=== PATIENT | male | born 1955 | race Two or more races ===

== ENCOUNTER 2019-10-16 06:12 | Day surgery (SDC) | payer MEDICAID ==
[2019-10-14 09:10] LABS: Basophils # (auto) 0 10 ^3/uL (0-0.2); Basophils % (auto) 0.6 % (0.0-2.0); Eosinophils # (auto) 0.8 10 ^3/uL (0-0.8); Eosinophils % (auto) 11.5 % (0.0-7.0); Hematocrit 42.9 % (41.0-53.0); Hemoglobin 14.1 g/dL (13.5-17.5); Lymphocytes # (auto) 1.1 10 ^3/uL (0.4-5.4); Lymphocytes % (auto) 15.6 % (10.0-50.0); Mean Corpuscular Hemoglobin 30.1 pg (28.0-32.0); Mean Corpuscular Hgb Conc. 32.9 g/dL (32.0-36.0); Mean Corpuscular Volume 91.4 fL (80.0-100.0); Monocytes # (auto) 0.9 10 ^3/uL (0-1.3); Monocytes % (auto) 13.8 % (0.0-12.0); Neutrophils % (auto) 58.5 % (37.0-80.0); Nucleated Red Blood Cells % 0.1 %; Platelet Count (auto) 297 10^3/uL (140-450); Red Cell Distribution Width 14.4 % (11.8-14.3); White Blood Cell 6.8 10^3/uL (4.4-10.8)
[2019-10-14 09:16] LABS: Urine Amorphous Crystal MANY /hpf (None Seen); Urine Bacteria FEW /hpf (None Seen); Urine Blood Negative /uL (Negative); Urine Mucus FEW (None Seen); Urine Specific Gravity 1.024 (1.001-1.035); Urine WBC 16 /hpf (0 - 3); Urine WBC Clumps PRESENT /hpf (None Seen)
[2019-10-14 09:28] LABS: INR 0.98 (0.9-1.15); Partial Thromboplastin Time 26.5 sec (23.64-32.05)
[2019-10-14 09:32] LABS: Albumin 3.4 g/dL (3.4-5.0); BUN/Creatinine Ratio 15.1; Calcium 8.2 mg/dL (8.5-10.1)
[2019-10-14 09:35] LABS: Bilirubin, Total 0.6 mg/dL (0.2-1.0); Total Protein 7.3 g/dL (6.4-8.2)
[~2019-10-16] VITALS: Ht 175.3 cm; Wt 90.7 kg
[~2019-10-16 06:12] MED LIST: ALBU108A5 IN
[2019-10-16] MEDS ORDERED: ceFAZolin 1GM/50ML 50 ML IV ONE (06:48)
[2019-10-16] MEDS ORDERED: LIDOCAINE 1% HCL (LOCAL ANESTH.) INJ 20ML MDV ONE (07:03)
[2019-10-16] MEDS ORDERED: SUCCINYLCHOLINE CHLORIDE 20 MG/ML 10ML VIAL IV ONE (07:03)
[2019-10-16] MEDS ORDERED: MEPERIDINE HCL (25 MG/ML) 1ML VIAL ONE (07:12)
[2019-10-16] MEDS ORDERED: fentaNYL CITRATE 100 MCG/2 ML VL ONE (07:13)
[2019-10-16] MEDS ORDERED: MIDAZOLAM HCL 1MG/1ML-2 ML VIAL ONE (07:13)
[2019-10-16] MEDS ORDERED: PROPOFOL 10 MG/ML 20 ML IV ONE (07:14)
[2019-10-16] MEDS ORDERED: ONDANSETRON HCL 4 MG/2 ML VIAL ONE (07:14)
[2019-10-16] MEDS ORDERED: ROCURONIUM 10MG/ML 10ML VIAL IV ONE (07:23)
[2019-10-16] MEDS ORDERED: fentaNYL CITRATE 100 MCG/2 ML VL IV PRN (07:45)
[2019-10-16] MEDS ORDERED: MORPHINE SULFATE 4 MG/ML SYR/VIAL IV PRN (07:45)
[2019-10-16] MEDS ORDERED: METOCLOPRAMIDE HCL 5MG/ml INJ 2ml VIAL IV PRN (07:45)
[2019-10-16] MEDS ORDERED: HYDROmorphone HCL 2 MG/ML VL IV PRN (07:45)
[2019-10-16] MEDS ORDERED: BUPIVACAINE 0.25% INJ 50ML VIAL ONE (07:55)
[2019-10-16 09:50] VITALS: BP 118/79
== END 2019-10-16 10:28 | disposition home or self-care (01) ==
LOC: SUR 06:12
PROVIDERS: ATTEND Surgery
DX: J44.9 Chronic obstructive pulmonary disease, unspecified (principal); E66.9 Obesity, unspecified; Z98.890 Other specified postprocedural states; Z68.29 Body mass index [BMI] 29.0-29.9, adult; Z79.899 Other long term (current) drug therapy; Z11.59 Encounter for screening for other viral diseases
CPT/HCPCS: 36415; 49520; 80053; 81001; 85025; 85610; 85730; J0330; J0690; J2001; J2175; J2250; J2405; J2704; J3010; J3490; U0003

== ENCOUNTER 2020-12-30 07:23 | Day surgery (SDC) | payer MEDICARE, MEDICAID ==
[2020-12-28 08:59] LABS: Basophils # (auto) 0 10 ^3/uL (0-0.2); Basophils % (auto) 0.6 % (0.0-2.0); Eosinophils # (auto) 0.6 10 ^3/uL (0-0.8); Eosinophils % (auto) 8.4 % (0.0-7.0); Hematocrit 39.8 % (41.0-53.0); Hemoglobin 13.6 g/dL (13.5-17.5); Lymphocytes # (auto) 1.6 10 ^3/uL (0.4-5.4); Lymphocytes % (auto) 23.2 % (10.0-50.0); Mean Corpuscular Hemoglobin 30.5 pg (28.0-32.0); Mean Corpuscular Hgb Conc. 34.2 g/dL (32.0-36.0); Mean Corpuscular Volume 89.1 fL (80.0-100.0); Monocytes # (auto) 0.9 10 ^3/uL (0-1.3); Monocytes % (auto) 13.3 % (0.0-12.0); Neutrophils # (auto) 3.7 10 ^3/uL (1.6-8.6); Neutrophils % (auto) 54.5 % (37.0-80.0); Red Blood Cells 4.47 10^6/uL (4.5-5.90); Red Cell Distribution Width 13.8 % (11.8-14.3); White Blood Cell 6.7 10^3/uL (4.4-10.8)
[2020-12-28 09:05] LABS: Urine Bacteria NONE SEEN /hpf (None Seen); Urine Blood Negative /uL (Negative); Urine Budding Yeast OCCASIONAL /hpf (None Seen); Urine Specific Gravity 1.034 (1.001-1.035); Urine WBC 1 /hpf (0 - 3)
[2020-12-28 09:27] LABS: Albumin 3.3 g/dL (3.4-5.0); Calcium 8.4 mg/dL (8.5-10.1); Potassium 3.8 mmol/L (3.5-5.1)
[2020-12-28 09:31] LABS: BUN/Creatinine Ratio 20.4; Bilirubin, Total 0.8 mg/dL (0.2-1.0); Total Protein 7.3 g/dL (6.4-8.2)
[~2020-12-30] VITALS: Ht 172.7 cm; Wt 93.0 kg
[~2020-12-30 07:23] MED LIST changes: +TAMS0.4C36 PO
[2020-12-30] MEDS ORDERED: ceFAZolin 1GM/50ML 100 ML IV ONE (07:32)
[2020-12-30] MEDS ORDERED: fentaNYL CITRATE 100 MCG/2 ML VL ONE (07:36)
[2020-12-30] MEDS ORDERED: PROPOFOL 10 MG/ML 20 ML IV ONE (07:36)
[2020-12-30] MEDS ORDERED: MIDAZOLAM HCL 2MG/2ML 2ml VIAL (1mg/ml) ONE (07:36)
[2020-12-30] MEDS ORDERED: SODIUM CHLORIDE LOCK 10 ML ONE (07:36)
[2020-12-30] MEDS ORDERED: ONDANSETRON HCL 4 MG/2 ML VIAL ONE (07:36)
[2020-12-30] MEDS ORDERED: MEPERIDINE HCL (25 MG/ML) 1ML VIAL ONE (07:36)
[2020-12-30] MEDS ORDERED: hydrALAZINE HCL 20 MG/ML VL ONE (07:49)
[2020-12-30] MEDS ORDERED: BUPIVACAINE 0.25% INJ 50ML VIAL ONE (08:15)
[2020-12-30] MEDS ORDERED: LIDOCAINE W/ EPINEPHRINE 1% 20ML VIAL ONE (08:15)
[2020-12-30] MEDS ORDERED: METOCLOPRAMIDE HCL 5MG/ml INJ 2ml VIAL IV PRN (08:30)
[2020-12-30] MEDS ORDERED: HYDROmorphone HCL 2 MG/ML VL IV PRN (08:30)
[2020-12-30] MEDS ORDERED: MORPHINE SULFATE 4 MG/ML SYR/VIAL IV PRN (08:30)
[2020-12-30 10:30] VITALS: BP 116/70
== END 2020-12-30 10:45 | disposition home or self-care (01) ==
LOC: SUR 07:23
PROVIDERS: ATTEND Surgery
DX: K40.90 Unilateral inguinal hernia, without obstruction or gangrene, not specified as recurrent (principal); E66.01 Morbid (severe) obesity due to excess calories; J44.9 Chronic obstructive pulmonary disease, unspecified; G62.9 Polyneuropathy, unspecified; Z98.890 Other specified postprocedural states; Z79.899 Other long term (current) drug therapy; Z68.31 Body mass index [BMI] 31.0-31.9, adult
CPT/HCPCS: 36415; 49520; 80053; 81001; 85025; 86850; 86900; 86901; J0360; J0690; J2175; J2250; J2405; J2704; J3010; J3490; U0003

== ENCOUNTER 2021-01-05 08:11 | Inpatient (IN) | payer MEDICARE, MEDICAID ==
[~2021-01-05] VITALS: Ht 172.7 cm; Wt 104.5 kg
[2021-01-05 09:47] LABS: Basophils # (auto) 0 10 ^3/uL (0-0.2); Basophils % (auto) 0.3 % (0.0-2.0); Eosinophils # (auto) 0.2 10 ^3/uL (0-0.8); Hematocrit 44.1 % (41.0-53.0); Hemoglobin 15.3 g/dL (13.5-17.5); Lymphocytes # (auto) 1.3 10 ^3/uL (0.4-5.4); Lymphocytes % (auto) 13.4 % (10.0-50.0); Mean Corpuscular Hemoglobin 30.3 pg (28.0-32.0); Mean Corpuscular Hgb Conc. 34.6 g/dL (32.0-36.0); Mean Corpuscular Volume 87.5 fL (80.0-100.0); Monocytes # (auto) 1.6 10 ^3/uL (0-1.3); Monocytes % (auto) 16.7 % (0.0-12.0); Neutrophils # (auto) 6.4 10 ^3/uL (1.6-8.6); Neutrophils % (auto) 67.6 % (37.0-80.0); Red Blood Cells 5.04 10^6/uL (4.5-5.90); Red Cell Distribution Width 13.9 % (11.8-14.3); White Blood Cell 9.5 10^3/uL (4.4-10.8)
[2021-01-05 10:10] LABS: Albumin 3.3 g/dL (3.4-5.0); Anion Gap 8 (5-15); Blood Urea Nitrogen 41 mg/dL (7-18); Calcium 8.7 mg/dL (8.5-10.1); Carbon Dioxide 27 mmol/L (21-32); Chloride 95 mmol/L (98-107); Glucose 109 mg/dL (74-106); Potassium 3.3 mmol/L (3.5-5.1); Sodium 130 mmol/L (136-145)
[2021-01-05 10:17] LABS: Alanine Aminotransferase 20 U/L (16-61); Alkaline Phosphatase 68 U/L (45-117); Aspartate Aminotransferase 19 U/L (15-37); BUN/Creatinine Ratio 37.3; Bilirubin, Total 1.3 mg/dL (0.2-1.0); GFR African American 86 mL/min; GFR Non-African American 71 mL/min; Total Protein 8.1 g/dL (6.4-8.2)
[2021-01-05] MEDS ORDERED: metroNIDAZOLE 500MG/100ML 100 ML IV ONE (12:00)
[2021-01-05] MEDS ORDERED: MORPHINE SULFATE INJECTION 2 MG/ML SYRG IV PRN ×2 (12:00→14:45)
[2021-01-05] MEDS ORDERED: NITROGLYCERIN 0.4 MG SL TAB SL PRN ×2 (12:00→14:45)
[2021-01-05] MEDS ORDERED: LACTATED RINGER'S 1,000 ML IV ONE (12:00)
[2021-01-05] MEDS ORDERED: cefTRIAXone 1GM/50ML D5W 50 ML IV ONE (12:00)
[2021-01-05] MEDS ORDERED: POTASSIUM CHL 20MEQ/100ML 100 ML IV ONE (14:30)
[2021-01-05] MEDS ORDERED: ceFAZolin 1GM/50ML 50 ML IV ONE (14:30)
[2021-01-05] MEDS ORDERED: ACETAMINOPHEN 325 MG TAB PO PRN (14:45)
[2021-01-05] MEDS ORDERED: HYDROcodone-ACET 5/325MG TAB PO PRN (14:45)
[2021-01-05] MEDS ORDERED: LORazepam 0.5 MG TAB PO PRN (14:45)
[2021-01-05] MEDS ORDERED: DOCUSATE SOD 100 MG CAP PO PRN (14:45)
[2021-01-05] MEDS ORDERED: ALUM & MAG HYDROX-SIMETH LIQ(MAALOX) 30 ML PO PRN (14:45)
[2021-01-05 15:47] LABS: INR 1.05 (0.9-1.15)
[2021-01-05 15:48] LABS: Magnesium 2.8 mg/dL (1.6-2.6)
[2021-01-05 16:07] LABS: Cholesterol 145 mg/dL (< 200); HDL Cholesterol 45 mg/dL (40-59); LDL Cholesterol 84 mg/dL (< 100); Triglycerides 85 mg/dL (< 150)
[2021-01-05 16:08] LABS: Phosphorus 3.6 mg/dL (2.5-4.90)
[2021-01-05] MEDS ORDERED: IPRATROPIUM BROM 0.5 MG/2.5ML INH SOL NEB PRN (17:30)
[2021-01-05] MEDS ORDERED: IPRATROPIUM BROM 0.5 MG/2.5ML INH SOL NEB SCH (18:00)
[2021-01-05] MEDS ORDERED: TAMSULOSIN HYDROCHLORIDE 0.4 MG CAP PO SCH (18:00)
[2021-01-05] MEDS ORDERED: ATORVASTATIN 20 MG TAB PO SCH (22:00)
[2021-01-06] MEDS: D5W/ SOD CHL 0.9%/KCL 20MEQ 1,000 ML IV SCH ×2 (03:50→07:21)
[2021-01-06] MEDS: metroNIDAZOLE 500MG/100ML 100 ML IV SCH ×4 (04:00→20:30)
[2021-01-06] MEDS: ceFAZolin 1GM/50ML 50 ML IV SCH ×4 (06:00→21:46)
[2021-01-06] MEDS: MORPHINE SULFATE INJECTION 2 MG/ML SYRG IV PRN ×4 (06:06→23:51)
[2021-01-06] MEDS: ONDANSETRON HCL 4 MG/2 ML VIAL IV PRN ×3 (06:07→15:48)
[2021-01-06] MEDS ORDERED: cefTRIAXone 1GM/50ML D5W 50 ML IV SCH (09:00)
[2021-01-06] MEDS ORDERED: GASTROGRAFIN 120 ML SOL ONE (09:44)
[2021-01-06] MEDS ORDERED: ASPirin 81 mg TAB PO SCH (10:00)
[2021-01-06] MEDS ORDERED: POTASSIUM CHL 20 Meq TABLET PO SCH (10:00)
[2021-01-06] MEDS ORDERED: SODIUM CHLORIDE 0.9% 500 ML IV ONE (13:00)
[2021-01-06 17:13] VITALS: BP 117/73
[2021-01-06] MEDS: D5W/SOD CHL 0.45%/KCL 40MEQ 1,000 ML IV SCH ×2 (18:22→21:20)
[2021-01-06] MEDS ORDERED: HYDROmorphone HCL 2 MG/ML VL IV ONE (18:45)
[2021-01-06 22:29] VITALS: BP 120/79
[2021-01-07 05:00] VITALS: BP_SYST 105; BP_SYST 109; BP_DIAS 70; BP_DIAS 71
[2021-01-07 05:41] LABS: Amphetamine Screen, Urine NEGATIVE (NEGATIVE); Barbiturate Scree,Urine NEGATIVE (NEGATIVE); Benzodiazephine Screen, Urine NEGATIVE (NEGATIVE); Cannabinoid Screen, Urine NEGATIVE (NEGATIVE); Cocaine Screen, Urine NEGATIVE (NEGATIVE); Phencyclidine Screen, Urine NEGATIVE (NEGATIVE)
[2021-01-07 05:50] LABS: Opiate Scree,Urine POSITIVE (NEGATIVE)
[2021-01-07 06:08] LABS: Urine Bacteria NONE SEEN /hpf (None Seen); Urine Blood 1+ /uL (Negative); Urine Mucus FEW (None Seen); Urine Specific Gravity 1.038 (1.001-1.035); Urine WBC 1 /hpf (0 - 3)
[2021-01-07] MEDS: metroNIDAZOLE 500MG/100ML 100 ML IV SCH ×3 (06:39→19:53)
[2021-01-07 07:16] LABS: Potassium 3.9 mmol/L (3.5-5.1)
[2021-01-07 07:22] LABS: Albumin 2.7 g/dL (3.4-5.0); BUN/Creatinine Ratio 26.7; Bilirubin, Total 0.8 mg/dL (0.2-1.0); Calcium 8.4 mg/dL (8.5-10.1); Total Protein 7.1 g/dL (6.4-8.2)
[2021-01-07] MEDS: ceFAZolin 1GM/50ML 50 ML IV SCH ×3 (07:27→21:39)
[2021-01-07] MEDS: D5W/SOD CHL 0.45%/KCL 40MEQ 1,000 ML IV SCH ×2 (08:26→08:40)
[2021-01-07] MEDS: MORPHINE SULFATE INJECTION 2 MG/ML SYRG IV PRN ×4 (08:29→22:50)
[2021-01-07] MEDS: ONDANSETRON HCL 4 MG/2 ML VIAL IV PRN (08:29)
[2021-01-07] MEDS ORDERED: LIDOCAINE W/ EPINEPHRINE 1% 20ML VIAL ONE (08:47)
[2021-01-07] MEDS ORDERED: BUPIVACAINE 0.25% INJ 50ML VIAL ONE (08:48)
[2021-01-07] MEDS ORDERED: metroNIDAZOLE 500MG/100ML 100 ML IV ONE (08:59)
[2021-01-07] MEDS ORDERED: ceFAZolin 1GM/50ML 50 ML IV ONE (08:59)
[2021-01-07 09:00] VITALS: BP 114/58
[2021-01-07] MEDS ORDERED: SUCCINYLCHOLINE CHLORIDE 20 MG/ML 10ML VIAL IV ONE (09:13)
[2021-01-07] MEDS ORDERED: ROCURONIUM 10MG/ML 10ML VIAL IV ONE (09:20)
[2021-01-07] MEDS ORDERED: fentaNYL CITRATE 5 ML ONE (09:20)
[2021-01-07] MEDS ORDERED: MIDAZOLAM HCL 2MG/2ML 2ml VIAL (1mg/ml) ONE (09:20)
[2021-01-07] MEDS ORDERED: HYDROmorphone HCL 2 MG/ML VL ONE ×2 (10:04→13:11)
[2021-01-07] MEDS ORDERED: POVIDONE IODINE 10 % TOPICAL OINT 30GM TOP ONE (12:04)
[2021-01-07] MEDS ORDERED: ceFAZolin 1GM VL ONE (12:19)
[2021-01-07] MEDS ORDERED: NALOXONE HCL 0.4 MG/ML VIAL ONE (12:45)
[2021-01-07] MEDS ORDERED: SUGAMMADEX 200mg/2ml Vial (100MG/ML) IV ONE (12:57)
[2021-01-07] MEDS ORDERED: ONDANSETRON HCL 4 MG/2 ML VIAL ONE (13:10)
[2021-01-07] MEDS: HYDROmorphone HCL 2 MG/ML VL IV PRN ×3 (13:20→13:40)
[2021-01-07] MEDS ORDERED: HYDROmorphone HCL 2 MG/ML VL IV PRN (14:00)
[2021-01-07] MEDS ORDERED: ONDANSETRON HCL 4 MG/2 ML VIAL IV PRN (14:00)
[2021-01-07] MEDS: D5W/SOD CHL 0.45%/KCL 20MEQ 1,000 ML IV SCH ×2 (16:34→21:20)
[2021-01-07 17:00] VITALS: BP_SYST 107; BP_SYST 113; BP_DIAS 69; BP_DIAS 71
[2021-01-07 21:48] VITALS: BP 124/67
[2021-01-08] MEDS: ONDANSETRON HCL 4 MG/2 ML VIAL IV PRN ×4 (01:24→22:24)
[2021-01-08] MEDS ORDERED: HYDROmorphone HCL 2 MG/ML VL IV ONE (02:15)
[2021-01-08] MEDS: D5W/SOD CHL 0.45%/KCL 20MEQ 1,000 ML IV SCH ×3 (02:23→22:20)
[2021-01-08] MEDS: metroNIDAZOLE 500MG/100ML 100 ML IV SCH ×3 (04:11→21:54)
[2021-01-08] MEDS: ceFAZolin 1GM/50ML 50 ML IV SCH ×3 (05:20→23:35)
[2021-01-08] MEDS: MORPHINE SULFATE INJECTION 2 MG/ML SYRG IV PRN ×3 (05:21→22:24)
[2021-01-08 05:27] LABS: Basophils # (auto) 0 10 ^3/uL (0-0.2); Basophils % (auto) 0.1 % (0.0-2.0); Eosinophils # (auto) 0.1 10 ^3/uL (0-0.8); Eosinophils % (auto) 0.5 % (0.0-7.0); Hematocrit 44.8 % (41.0-53.0); Lymphocytes # (auto) 0.8 10 ^3/uL (0.4-5.4); Lymphocytes % (auto) 6.9 % (10.0-50.0); Mean Corpuscular Hemoglobin 29.6 pg (28.0-32.0); Mean Corpuscular Hgb Conc. 33.4 g/dL (32.0-36.0); Mean Corpuscular Volume 88.9 fL (80.0-100.0); Monocytes # (auto) 1.5 10 ^3/uL (0-1.3); Monocytes % (auto) 12.4 % (0.0-12.0); Neutrophils # (auto) 9.7 10 ^3/uL (1.6-8.6); Neutrophils % (auto) 80.1 % (37.0-80.0); Red Blood Cells 5.05 10^6/uL (4.5-5.90); Red Cell Distribution Width 13.9 % (11.8-14.3); White Blood Cell 12.1 10^3/uL (4.4-10.8)
[2021-01-08 05:40] LABS: INR 1.13 (0.9-1.15); Partial Thromboplastin Time 26.6 sec (23.6-33.0)
[2021-01-08 05:54] LABS: Potassium 4.4 mmol/L (3.5-5.1)
[2021-01-08 06:00] VITALS: BP 107/73
[2021-01-08 06:04] LABS: Albumin 2.3 g/dL (3.4-5.0); Bilirubin, Total 0.9 mg/dL (0.2-1.0); Calcium 8.2 mg/dL (8.5-10.1); Total Protein 6.4 g/dL (6.4-8.2)
[2021-01-08 09:00] VITALS: BP 111/78
[2021-01-08] MEDS: PANTOPRAZOLE 40 MG/10 ML VIAL INJ IV SCH (10:24)
[2021-01-08 17:00] VITALS: BP 118/80
[2021-01-08] MEDS: ENOXAPARIN SOD 40 MG/0.4 ML SYRINGE SC SCH (21:59)
[2021-01-08 22:00] VITALS: BP 120/71
[2021-01-09] MEDS: metroNIDAZOLE 500MG/100ML 100 ML IV SCH ×3 (04:13→20:48)
[2021-01-09 05:00] VITALS: BP 115/71
[2021-01-09] MEDS: ceFAZolin 1GM/50ML 50 ML IV SCH ×3 (05:45→22:33)
[2021-01-09] MEDS: D5W/SOD CHL 0.45%/KCL 20MEQ 1,000 ML IV SCH ×2 (06:40→14:45)
[2021-01-09] MEDS ORDERED: LIDOCAINE 1% (LOCAL ANESTH.) PF 5ml SDV ID ONE (08:45)
[2021-01-09 09:00] VITALS: BP 99/69
[2021-01-09] MEDS: SODIUM CHLOR 0.9% PF (SALINE LOCK) 10ML VIAL/SYR IV SCH ×2 (10:28→22:28)
[2021-01-09] MEDS: ENOXAPARIN SOD 40 MG/0.4 ML SYRINGE SC SCH (10:28)
[2021-01-09] MEDS: PANTOPRAZOLE 40 MG/10 ML VIAL INJ IV SCH (10:28)
[2021-01-09] MEDS ORDERED: TPN PER PHARMACY 0 ML IV SCH (11:45)
[2021-01-09 13:00] VITALS: BP 112/90
[2021-01-09 14:14] LABS: Albumin 2.1 g/dL (3.4-5.0); Calcium 8.3 mg/dL (8.5-10.1); Potassium 3.7 mmol/L (3.5-5.1)
[2021-01-09 14:19] LABS: BUN/Creatinine Ratio 18.8; Bilirubin, Total 0.6 mg/dL (0.2-1.0); Phosphorus 1.8 mg/dL (2.5-4.90); Pre Albumin 10.8 mg/dL (20.0-40.0)
[2021-01-09] MEDS ORDERED: DEXTROSE (50%) 50ML SYRG IV SCH (14:45)
[2021-01-09] MEDS ORDERED: SODIUM PHOSPH 24MEQ(18MMOL) IN NS 100 ML IV ONE (15:30)
[2021-01-09] MEDS: MORPHINE SULFATE INJECTION 2 MG/ML SYRG IV PRN ×2 (16:44→22:45)
[2021-01-09 17:00] VITALS: BP 106/74
[2021-01-09] MEDS: ACCU-CHEK COMFORT CURVE STRIP VI SCH ×2 (17:27→23:42)
[2021-01-09] MEDS: InsuLIN REG 1unit/0.01ml Soln (100units/ml) SC SCH ×2 (17:27→23:42)
[2021-01-09] MEDS ORDERED: AMINO ACID INFUSION IN D5W 2,000 ML IV NR (20:00)
[2021-01-09] MEDS ORDERED: AMINO ACID INFUSION IV NR ×2 (20:00)
[2021-01-09] MEDS ORDERED: AMINO ACID INFUSION IN D10W 1,000 ML IV NR (20:00)
[2021-01-09] MEDS ORDERED: D10W IV NR ×2 (20:00)
[2021-01-09] MEDS ORDERED: POTASSIUM PHOSPHATE IV NR ×2 (20:00)
[2021-01-09 22:00] VITALS: BP 120/57
[2021-01-09] MEDS: ONDANSETRON HCL 4 MG/2 ML VIAL IV PRN (22:45)
[2021-01-10] MEDS: metroNIDAZOLE 500MG/100ML 100 ML IV SCH ×3 (03:56→20:23)
[2021-01-10 05:00] VITALS: BP 104/63
[2021-01-10] MEDS: ceFAZolin 1GM/50ML 50 ML IV SCH ×3 (05:08→22:54)
[2021-01-10] MEDS: InsuLIN REG 1unit/0.01ml Soln (100units/ml) SC SCH ×3 (05:09→16:29)
[2021-01-10] MEDS: ACCU-CHEK COMFORT CURVE STRIP VI SCH ×3 (05:09→16:29)
[2021-01-10] MEDS: D5W/SOD CHL 0.45%/KCL 20MEQ 1,000 ML IV SCH ×2 (05:17→08:30)
[2021-01-10 06:22] LABS: Basophils # (auto) 0 10 ^3/uL (0-0.2); Basophils % (auto) 0.2 % (0.0-2.0); Eosinophils # (auto) 0.6 10 ^3/uL (0-0.8); Eosinophils % (auto) 6.1 % (0.0-7.0); Hematocrit 36.6 % (41.0-53.0); Hemoglobin 12.4 g/dL (13.5-17.5); Mean Corpuscular Hemoglobin 30.2 pg (28.0-32.0); Mean Corpuscular Hgb Conc. 33.8 g/dL (32.0-36.0); Mean Corpuscular Volume 89.2 fL (80.0-100.0); Monocytes # (auto) 1.5 10 ^3/uL (0-1.3); Monocytes % (auto) 16.1 % (0.0-12.0); Neutrophils # (auto) 6.1 10 ^3/uL (1.6-8.6); Neutrophils % (auto) 66.6 % (37.0-80.0); Red Cell Distribution Width 13.7 % (11.8-14.3); White Blood Cell 9.2 10^3/uL (4.4-10.8)
[2021-01-10 06:37] LABS: Albumin 1.9 g/dL (3.4-5.0); Calcium 7.9 mg/dL (8.5-10.1); Magnesium 2.8 mg/dL (1.6-2.6); Potassium 4.1 mmol/L (3.5-5.1)
[2021-01-10 06:40] LABS: BUN/Creatinine Ratio 21.2; Bilirubin, Total 0.4 mg/dL (0.2-1.0); Phosphorus 2.3 mg/dL (2.5-4.90); Total Protein 5.6 g/dL (6.4-8.2)
[2021-01-10 09:00] VITALS: BP 115/58
[2021-01-10] MEDS: MORPHINE SULFATE INJECTION 2 MG/ML SYRG IV PRN ×3 (09:33→18:47)
[2021-01-10] MEDS: PANTOPRAZOLE 40 MG/10 ML VIAL INJ IV SCH (09:48)
[2021-01-10] MEDS: ENOXAPARIN SOD 40 MG/0.4 ML SYRINGE SC SCH (09:49)
[2021-01-10] MEDS: SODIUM CHLOR 0.9% PF (SALINE LOCK) 10ML VIAL/SYR IV SCH ×2 (09:57→22:00)
[2021-01-10] MEDS ORDERED: SODIUM PHOSPHATES 40 MEQ in D5W 5% 250 ML IV ONE (10:30)
[2021-01-10 13:00] VITALS: BP 119/72
[2021-01-10] MEDS ORDERED: FLEET MINERAL OIL ENEMA 133 ML PR ONE (14:30)
[2021-01-10] MEDS: METOCLOPRAMIDE HCL 5MG/ml INJ 2ml VIAL IV SCH (16:28)
[2021-01-10] MEDS: TAMSULOSIN HYDROCHLORIDE 0.4 MG CAP PO SCH (16:29)
[2021-01-10 17:20] VITALS: BP 99/65
[2021-01-10] MEDS: NEOSTIGMINE 1 MG/ML INJ (10mg/10ML VIAL) SC SCH ×2 (17:35→22:54)
[2021-01-10] MEDS ORDERED: TPN PER PHARMACY IV NR ×7 (20:00)
[2021-01-10 22:13] VITALS: BP 99/58
[2021-01-10] MEDS: MINERAL OIL 30 ML GT SCH (22:53)
[2021-01-11] MEDS: ACCU-CHEK COMFORT CURVE STRIP VI SCH ×4 (00:17→16:41)
[2021-01-11] MEDS: D5W/SOD CHL 0.45%/KCL 20MEQ 1,000 ML IV SCH ×3 (00:17→22:00)
[2021-01-11] MEDS: METOCLOPRAMIDE HCL 5MG/ml INJ 2ml VIAL IV SCH ×4 (00:17→16:47)
[2021-01-11] MEDS: NEOSTIGMINE 1 MG/ML INJ (10mg/10ML VIAL) SC SCH ×6 (02:24→23:40)
[2021-01-11] MEDS: MORPHINE SULFATE INJECTION 2 MG/ML SYRG IV PRN ×5 (03:53→21:11)
[2021-01-11] MEDS: metroNIDAZOLE 500MG/100ML 100 ML IV SCH ×3 (03:53→21:11)
[2021-01-11 05:25] VITALS: BP 111/65
[2021-01-11] MEDS: ceFAZolin 1GM/50ML 50 ML IV SCH ×3 (05:57→23:39)
[2021-01-11] MEDS: InsuLIN REG 1unit/0.01ml Soln (100units/ml) SC SCH ×4 (06:46→16:41)
[2021-01-11] MEDS: SODIUM CHLOR 0.9% PF (SALINE LOCK) 10ML VIAL/SYR IV SCH ×2 (07:47→23:39)
[2021-01-11] MEDS: PANTOPRAZOLE 40 MG/10 ML VIAL INJ IV SCH (07:47)
[2021-01-11] MEDS: MINERAL OIL 30 ML GT SCH ×2 (07:47→23:40)
[2021-01-11] MEDS: ENOXAPARIN SOD 40 MG/0.4 ML SYRINGE SC SCH (07:47)
[2021-01-11 08:06] LABS: Basophils # (auto) 0 10 ^3/uL (0-0.2); Basophils % (auto) 0.3 % (0.0-2.0); Eosinophils # (auto) 0.5 10 ^3/uL (0-0.8); Eosinophils % (auto) 6.2 % (0.0-7.0); Hematocrit 38.5 % (41.0-53.0); Hemoglobin 13.1 g/dL (13.5-17.5); Lymphocytes # (auto) 1.2 10 ^3/uL (0.4-5.4); Lymphocytes % (auto) 13.4 % (10.0-50.0); Mean Corpuscular Hemoglobin 30.2 pg (28.0-32.0); Mean Corpuscular Volume 88.9 fL (80.0-100.0); Monocytes # (auto) 1.2 10 ^3/uL (0-1.3); Monocytes % (auto) 14.3 % (0.0-12.0); Neutrophils # (auto) 5.7 10 ^3/uL (1.6-8.6); Neutrophils % (auto) 65.8 % (37.0-80.0); Red Blood Cells 4.34 10^6/uL (4.5-5.90); Red Cell Distribution Width 14.1 % (11.8-14.3); White Blood Cell 8.6 10^3/uL (4.4-10.8)
[2021-01-11 08:25] LABS: Calcium 7.7 mg/dL (8.5-10.1)
[2021-01-11 08:31] LABS: Albumin 1.9 g/dL (3.4-5.0); BUN/Creatinine Ratio 18.8; Bilirubin, Total 0.4 mg/dL (0.2-1.0); Magnesium 2.5 mg/dL (1.6-2.6); Phosphorus 2.5 mg/dL (2.5-4.90); Total Protein 5.5 g/dL (6.4-8.2)
[2021-01-11 09:00] VITALS: BP 105/68
[2021-01-11 13:00] VITALS: BP 111/68
[2021-01-11] MEDS ORDERED: GASTROGRAFIN 120 ML SOL ONE (14:01)
[2021-01-11] MEDS: ONDANSETRON HCL 4 MG/2 ML VIAL IV PRN (16:17)
[2021-01-11] MEDS: TAMSULOSIN HYDROCHLORIDE 0.4 MG CAP PO SCH (16:47)
[2021-01-11 17:07] VITALS: BP 118/72
[2021-01-11] MEDS ORDERED: TPN PER PHARMACY IV NR ×10 (20:00)
[2021-01-11 22:00] VITALS: BP 108/65
[2021-01-12] MEDS: METOCLOPRAMIDE HCL 5MG/ml INJ 2ml VIAL IV SCH ×5 (01:47→22:23)
[2021-01-12] MEDS: metroNIDAZOLE 500MG/100ML 100 ML IV SCH ×2 (04:30→09:49)
[2021-01-12] MEDS: NEOSTIGMINE 1 MG/ML INJ (10mg/10ML VIAL) SC SCH ×4 (04:30→11:55)
[2021-01-12] MEDS: ceFAZolin 1GM/50ML 50 ML IV SCH ×2 (04:30→11:55)
[2021-01-12 05:00] VITALS: BP 96/70
[2021-01-12 05:49] LABS: Calcium 7.9 mg/dL (8.5-10.1); Magnesium 2.5 mg/dL (1.6-2.6); Potassium 3.7 mmol/L (3.5-5.1)
[2021-01-12 05:52] LABS: BUN/Creatinine Ratio 15.3; Bilirubin, Total 0.6 mg/dL (0.2-1.0); Phosphorus 2.8 mg/dL (2.5-4.90); Total Protein 5.8 g/dL (6.4-8.2)
[2021-01-12] MEDS: InsuLIN REG 1unit/0.01ml Soln (100units/ml) SC SCH ×3 (06:00→09:55)
[2021-01-12] MEDS: ACCU-CHEK COMFORT CURVE STRIP VI SCH ×3 (06:13→09:55)
[2021-01-12] MEDS: D5W/SOD CHL 0.45%/KCL 20MEQ 1,000 ML IV SCH (09:49)
[2021-01-12] MEDS: PANTOPRAZOLE 40 MG/10 ML VIAL INJ IV SCH (09:49)
[2021-01-12] MEDS: ENOXAPARIN SOD 40 MG/0.4 ML SYRINGE SC SCH (09:49)
[2021-01-12] MEDS: SODIUM CHLOR 0.9% PF (SALINE LOCK) 10ML VIAL/SYR IV SCH ×2 (09:49→20:34)
[2021-01-12] MEDS: MINERAL OIL 30 ML GT SCH (09:49)
[2021-01-12 13:40] VITALS: BP 115/74
[2021-01-12] MEDS: TAMSULOSIN HYDROCHLORIDE 0.4 MG CAP PO SCH (15:44)
[2021-01-12 17:48] VITALS: BP 115/76
[2021-01-12] MEDS: HYDROcodone-ACET 5/325MG TAB PO PRN (19:41)
[2021-01-12] MEDS ORDERED: TPN PER PHARMACY IV NR ×11 (20:00)
[2021-01-12] MEDS: MINERAL OIL 30 ML PO SCH (20:34)
[2021-01-12 22:00] VITALS: BP 115/64
[2021-01-12] MEDS ORDERED: MORPHINE SULFATE INJECTION 2 MG/ML SYRG IV ONE (23:00)
[2021-01-13 05:00] VITALS: BP 104/63
[2021-01-13] MEDS: METOCLOPRAMIDE HCL 5MG/ml INJ 2ml VIAL IV SCH ×3 (05:36→17:09)
[2021-01-13] MEDS: HYDROcodone-ACET 5/325MG TAB PO PRN ×3 (05:43→19:55)
[2021-01-13] MEDS: PANTOPRAZOLE 40 MG/10 ML VIAL INJ IV SCH (08:16)
[2021-01-13] MEDS: SODIUM CHLOR 0.9% PF (SALINE LOCK) 10ML VIAL/SYR IV SCH ×2 (08:17→20:51)
[2021-01-13] MEDS: MINERAL OIL 30 ML PO SCH ×2 (08:17→20:51)
[2021-01-13] MEDS: ENOXAPARIN SOD 40 MG/0.4 ML SYRINGE SC SCH (08:17)
[2021-01-13 09:00] VITALS: BP 105/62
[2021-01-13 13:10] VITALS: BP 99/62
[2021-01-13 16:53] VITALS: BP 108/61
[2021-01-13] MEDS: TAMSULOSIN HYDROCHLORIDE 0.4 MG CAP PO SCH (17:09)
[2021-01-13 22:00] VITALS: BP 123/63
[2021-01-14] MEDS: HYDROcodone-ACET 5/325MG TAB PO PRN ×2 (00:04→05:44)
[2021-01-14 05:00] VITALS: BP 103/57
[2021-01-14] MEDS: METOCLOPRAMIDE HCL 5MG/ml INJ 2ml VIAL IV SCH ×3 (05:41→11:51)
[2021-01-14] MEDS ORDERED: PANT40TA2 PO (08:37)
[2021-01-14 09:00] VITALS: BP 95/54
[2021-01-14] MEDS: SODIUM CHLOR 0.9% PF (SALINE LOCK) 10ML VIAL/SYR IV SCH (09:02)
[2021-01-14] MEDS: MINERAL OIL 30 ML PO SCH (09:02)
[2021-01-14] MEDS: ENOXAPARIN SOD 40 MG/0.4 ML SYRINGE SC SCH (09:02)
[2021-01-14] MEDS: PANTOPRAZOLE 40 MG/10 ML VIAL INJ IV SCH (09:02)
[2021-01-14] MEDS ORDERED: POLY33504 PO (12:18)
[2021-01-14] MEDS ORDERED: METR500T PO (12:18)
[2021-01-14] MEDS ORDERED: BISA1TAB6 PO (12:18)
[2021-01-14] MEDS ORDERED: LEVO-28 PO (12:18)
== END 2021-01-14 13:43 | disposition home or self-care (01) | DRG 336 ==
LOC: ER 08:11 → OVERFLOW 11:48 → TELE-WESTW 01-06 15:37 → WEST WING 01-07 00:26 → TELE-WESTW 01-07 16:56 → WEST WING 01-12 11:42
PROVIDERS: ADMIT Hospitalist; ATTEND Internal Medicine
PROC: 0YQ60ZZ Repair Left Inguinal Region, Open Approach (ICD-10-PCS; 2021-01-07)
PROC: 0WUF0JZ Supplement Abdominal Wall with Synthetic Substitute, Open Approach (ICD-10-PCS; 2021-01-07)
PROC: 0D9680Z Drainage of Stomach with Drainage Device, Via Natural or Artificial Opening Endoscopic (ICD-10-PCS; 2021-01-07)
PROC: 0DN80ZZ Release Small Intestine, Open Approach (ICD-10-PCS; principal; 2021-01-07 09:21)
PROC: 02HV33Z Insertion of Infusion Device into Superior Vena Cava, Percutaneous Approach (ICD-10-PCS; 2021-01-09)
DX: K40.31 Unilateral inguinal hernia, with obstruction, without gangrene, recurrent (principal); E44.1 Mild protein-calorie malnutrition; E87.1 Hypo-osmolality and hyponatremia; K56.7 Ileus, unspecified; E66.01 Morbid (severe) obesity due to excess calories; E87.6 Hypokalemia; E78.5 Hyperlipidemia, unspecified; Z20.822 Contact with and (suspected) exposure to COVID-19; N40.0 Benign prostatic hyperplasia without lower urinary tract symptoms; K42.9 Umbilical hernia without obstruction or gangrene; Z68.32 Body mass index [BMI] 32.0-32.9, adult
CPT/HCPCS: 36415; 36569; 43235; 71045; 74018; 74176; 74250; 80053; 80061; 80307; 81001; 82040; 82962; 83036; 83735; 84100; 84443; 84478; 84484; 85025; 85610; 85730; 86850; 86900; 86901; 87040; 87081; 87086; 87426; 93005; 97163; C9113; G0378; J0330; J0690; J0696; J1815; J2250; J2405; J3480; J3490; J7060; J7131

== ENCOUNTER → 2021-03-11 | Day surgery (SDC) | payer MEDICARE, MEDICAID ==
[2021-03-08 09:25] LABS: Basophils # (auto) 0 10 ^3/uL (0-0.2); Basophils % (auto) 0.3 % (0.0-2.0); Eosinophils # (auto) 0.6 10 ^3/uL (0-0.8); Eosinophils % (auto) 10.1 % (0.0-7.0); Hematocrit 43.1 % (41.0-53.0); Hemoglobin 14.2 g/dL (13.5-17.5); Lymphocytes # (auto) 0.9 10 ^3/uL (0.4-5.4); Lymphocytes % (auto) 16.6 % (10.0-50.0); Mean Corpuscular Hemoglobin 29.5 pg (28.0-32.0); Mean Corpuscular Volume 89.3 fL (80.0-100.0); Monocytes # (auto) 0.6 10 ^3/uL (0-1.3); Monocytes % (auto) 10.9 % (0.0-12.0); Neutrophils # (auto) 3.5 10 ^3/uL (1.6-8.6); Neutrophils % (auto) 62.1 % (37.0-80.0); Nucleated Red Blood Cells % 0.1 %; Red Blood Cells 4.83 10^6/uL (4.5-5.90); Red Cell Distribution Width 14.4 % (11.8-14.3); White Blood Cell 5.6 10^3/uL (4.4-10.8)
[2021-03-08 09:29] LABS: Urine Bacteria NONE SEEN /hpf (None Seen); Urine Blood 1+ /uL (Negative); Urine Specific Gravity 1.018 (1.001-1.035); Urine WBC 1 /hpf (0 - 3)
[2021-03-08 09:53] LABS: Potassium 4.2 mmol/L (3.5-5.1)
[2021-03-08 09:58] LABS: Albumin 3.4 g/dL (3.4-5.0); BUN/Creatinine Ratio 11.7; Bilirubin, Total 0.4 mg/dL (0.2-1.0); Calcium 8.6 mg/dL (8.5-10.1); Total Protein 7.8 g/dL (6.4-8.2)
[~2021-03-11] VITALS: Ht 172.7 cm; Wt 95.3 kg
[~2021-03-11] MED LIST changes: +BISA1TAB6 PO; +CIPROFLOXACIN 400MG/200ML 200 ML IV ONE; +HYDROmorphone HCL 2 MG/ML VL IV PRN; +LEVO-28 PO; +METOCLOPRAMIDE HCL 5MG/ml INJ 2ml VIAL IV PRN; +METR500T PO; +MIDAZOLAM HCL 2MG/2ML 2ml VIAL (1mg/ml) ONE; +MORPHINE SULFATE 4 MG/ML SYR/VIAL IV PRN; +ONDANSETRON HCL 4 MG/2 ML VIAL ONE; +PANT40TA2 PO; +POLY33504 PO; +PROPOFOL 10 MG/ML 20 ML IV ONE; +SODIUM CHLORIDE LOCK 10 ML ONE; +ceFAZolin 1GM/50ML 0 ML IV ONE; +fentaNYL CITRATE 100 MCG/2 ML VL ONE
[2021-03-11 09:40] VITALS: BP 101/61
== END | disposition home or self-care (01) ==
LOC: SUR 07:38
PROVIDERS: ATTEND Urology
DX: N40.0 Benign prostatic hyperplasia without lower urinary tract symptoms (principal); J32.8 Other chronic sinusitis; J44.9 Chronic obstructive pulmonary disease, unspecified; Z79.899 Other long term (current) drug therapy; Z68.31 Body mass index [BMI] 31.0-31.9, adult; Z20.822 Contact with and (suspected) exposure to COVID-19
CPT/HCPCS: 36415; 55700; 80053; 81001; 85025; J0744; J2250; J2405; J2704; J3010; U0003; 76872; J0690

== ENCOUNTER → 2021-11-24 | Outpatient (CLI) | payer MEDICARE, MEDICAID ==
[~2021-11-24] MED LIST changes: -CIPROFLOXACIN 400MG/200ML 200 ML IV ONE; -HYDROmorphone HCL 2 MG/ML VL IV PRN; -METOCLOPRAMIDE HCL 5MG/ml INJ 2ml VIAL IV PRN; -MIDAZOLAM HCL 2MG/2ML 2ml VIAL (1mg/ml) ONE; -MORPHINE SULFATE 4 MG/ML SYR/VIAL IV PRN; -ONDANSETRON HCL 4 MG/2 ML VIAL ONE; -PROPOFOL 10 MG/ML 20 ML IV ONE; -SODIUM CHLORIDE LOCK 10 ML ONE; -ceFAZolin 1GM/50ML 0 ML IV ONE; -fentaNYL CITRATE 100 MCG/2 ML VL ONE
== END | disposition home or self-care (01) ==
LOC: LAB 08:25
DX: C61 Malignant neoplasm of prostate (principal)
CPT/HCPCS: 36415; 84153; 84403

== ENCOUNTER → 2022-01-10 | Outpatient (CLI) | payer MEDICARE, MEDICAID ==
[2022-01-10 10:36] LABS: Basophils # (auto) 0 10 ^3/uL (0-0.2); Basophils % (auto) 0.5 % (0.0-2.0); Eosinophils # (auto) 0.6 10 ^3/uL (0-0.8); Eosinophils % (auto) 12.5 % (0.0-7.0); Hematocrit 38.5 % (41.0-53.0); Hemoglobin 12.6 g/dL (13.5-17.5); Lymphocytes # (auto) 0.9 10 ^3/uL (0.4-5.4); Lymphocytes % (auto) 17.7 % (10.0-50.0); Mean Corpuscular Hemoglobin 29.6 pg (28.0-32.0); Mean Corpuscular Hgb Conc. 32.8 g/dL (32.0-36.0); Mean Corpuscular Volume 90.1 fL (80.0-100.0); Monocytes # (auto) 0.5 10 ^3/uL (0-1.3); Monocytes % (auto) 10.5 % (0.0-12.0); Neutrophils # (auto) 2.9 10 ^3/uL (1.6-8.6); Neutrophils % (auto) 58.8 % (37.0-80.0); Red Blood Cells 4.27 10^6/uL (4.5-5.90); Red Cell Distribution Width 13.8 % (11.8-14.3)
[2022-01-10 10:43] LABS: Calcium 8.8 mg/dL (8.5-10.1); Potassium 3.9 mmol/L (3.5-5.1)
[2022-01-10 10:49] LABS: Albumin 3.1 g/dL (3.4-5.0); BUN/Creatinine Ratio 10.3; Bilirubin, Total 0.4 mg/dL (0.2-1.0); Total Protein 7.2 g/dL (6.4-8.2); Uric Acid 5.6 mg/dL (3.5-7.2)
== END | disposition home or self-care (01) ==
LOC: LAB 10:02
PROVIDERS: ATTEND Nurse Practitioner
DX: I10 Essential (primary) hypertension (principal); E78.5 Hyperlipidemia, unspecified
CPT/HCPCS: 36415; 80053; 80061; 84550; 85025

== ENCOUNTER → 2022-02-24 | Outpatient (CLI) | payer MEDICARE, MEDICAID | END | disposition home or self-care (01) | LOC: LAB 09:41 | PROVIDERS: ATTEND Urology | DX: C61 Malignant neoplasm of prostate (principal) | CPT/HCPCS: 36415; 84153; 84403 ==

== ENCOUNTER 2022-09-28 08:35 | Inpatient (IN) | payer MEDICARE, MEDICAID ==
[2022-09-26 12:50] LABS: Urine WBC None Seen /hpf (0 - 3)
[2022-09-26 13:13] LABS: Basophils # (auto) 0 10 ^3/uL (0-0.2); Basophils % (auto) 0.5 % (0.0-2.0); Eosinophils # (auto) 0.6 10 ^3/uL (0-0.8); Eosinophils % (auto) 10.6 % (0.0-7.0); Hematocrit 38.7 % (41.0-53.0); Hemoglobin 12.8 g/dL (13.5-17.5); Lymphocytes # (auto) 1.3 10 ^3/uL (0.4-5.4); Lymphocytes % (auto) 20.9 % (10.0-50.0); Mean Corpuscular Hemoglobin 29.4 pg (28.0-32.0); Mean Corpuscular Hgb Conc. 33.1 g/dL (32.0-36.0); Mean Corpuscular Volume 88.7 fL (80.0-100.0); Monocytes # (auto) 0.7 10 ^3/uL (0-1.3); Monocytes % (auto) 11.8 % (0.0-12.0); Neutrophils # (auto) 3.5 10 ^3/uL (1.6-8.6); Neutrophils % (auto) 56.2 % (37.0-80.0); Nucleated Red Blood Cells % 0.1 %; Red Blood Cells 4.37 10^6/uL (4.5-5.90); White Blood Cell 6.1 10^3/uL (4.4-10.8)
[2022-09-26 13:27] LABS: INR 0.92 (0.9-1.15); Partial Thromboplastin Time 26.4 sec (24.6-33.4)
[2022-09-26 13:35] LABS: Albumin 3.6 g/dL (3.4-5.0); Potassium 4.2 mmol/L (3.5-5.1)
[2022-09-26 13:37] LABS: Urine Bacteria NONE SEEN /hpf (None Seen); Urine Blood TRACE /uL (Negative); Urine Specific Gravity 1.009 (1.001-1.035)
[2022-09-26 13:41] LABS: Bilirubin, Total 0.4 mg/dL (0.2-1.0); Total Protein 7.8 g/dL (6.4-8.2)
[~2022-09-28] VITALS: Ht 172.7 cm; Wt 109.3 kg
[~2022-09-28 08:35] MED LIST changes: -BISA1TAB6 PO; -LEVO-28 PO; -METR500T PO; -PANT40TA2 PO; -POLY33504 PO; -TAMS0.4C36 PO
[2022-09-28] MEDS ORDERED: ceFAZolin 1GM/50ML 100 ML IV ONE (08:36)
[2022-09-28] MEDS ORDERED: fentaNYL CITRATE 100 MCG/2 ML VL ONE (09:38)
[2022-09-28] MEDS ORDERED: ePHEDrine SULFATE 50 MG/ML AMP ONE (09:38)
[2022-09-28] MEDS ORDERED: MIDAZOLAM HCL 2MG/2ML 2ml VIAL (1mg/ml) ONE (09:38)
[2022-09-28] MEDS ORDERED: LIDOCAINE 2% (LOCAL ANESTH.) PF 5ml SDV ONE (09:38)
[2022-09-28] MEDS ORDERED: HYDROmorphone HCL 2 MG/ML VL/or syr ONE (09:38)
[2022-09-28] MEDS ORDERED: PROPOFOL 10 MG/ML 20 ML IV ONE (09:38)
[2022-09-28] MEDS ORDERED: KETOROLAC TROMETH 30 MG/ML 1ML VIAL ONE (09:38)
[2022-09-28] MEDS ORDERED: GLYCOPYRROLATE 0.2 MG/ML 1ML VIAL ONE (09:38)
[2022-09-28] MEDS ORDERED: ONDANSETRON HCL 4 MG/2 ML VIAL ONE (09:38)
[2022-09-28] MEDS ORDERED: DexAMETHasone SOD PHOS 10MG/1ML VIAL INJ ONE (09:38)
[2022-09-28] MEDS ORDERED: SUCCINYLCHOLINE CHLORIDE 20 MG/ML 10ML VIAL IV ONE (10:55)
[2022-09-28] MEDS ORDERED: ROCURONIUM 10MG/ML 10ML VIAL IV ONE (10:56)
[2022-09-28] MEDS ORDERED: LIDOCAINE W/ EPINEPHRINE 1% 20ML VIAL ONE (10:57)
[2022-09-28] MEDS ORDERED: BUPIVACAINE 0.25% INJ 50ML VIAL ONE (10:57)
[2022-09-28] MEDS ORDERED: SUGAMMADEX 200mg/2ml Vial (100MG/ML) IV ONE (12:14)
[2022-09-28] MEDS ORDERED: POVIDONE IODINE 10 % TOPICAL OINT 30GM TOP ONE (12:17)
[2022-09-28] MEDS: D5W/SOD CHL 0.45%/KCL 20MEQ 1,000 ML IV SCH ×2 (12:30→21:32)
[2022-09-28] MEDS ORDERED: HYDROmorphone HCL 2 MG/ML VL/or syr IV PRN ×2 (12:30→12:45)
[2022-09-28] MEDS ORDERED: ONDANSETRON HCL 4 MG/2 ML VIAL IV PRN ×2 (12:30→12:45)
[2022-09-28] MEDS: ceFAZolin 1GM/50ML 50 ML IV SCH ×2 (14:00→21:32)
[2022-09-28] MEDS: metroNIDAZOLE 500MG/100ML 100 ML IV SCH ×2 (14:25→21:32)
[2022-09-28 16:16] VITALS: BP 101/52
[2022-09-28 16:58] VITALS: BP 101/52
[2022-09-28] MEDS ORDERED: TAMS0.4C36 PO (17:13)
[2022-09-28 22:00] VITALS: BP 92/55
[2022-09-29 05:00] VITALS: BP 94/53
[2022-09-29] MEDS: ceFAZolin 1GM/50ML 50 ML IV SCH ×3 (05:20→21:51)
[2022-09-29] MEDS: metroNIDAZOLE 500MG/100ML 100 ML IV SCH ×3 (05:20→21:51)
[2022-09-29 05:32] LABS: BUN/Creatinine Ratio 18.7 (10.0-20.0); Calcium 8.5 mg/dL (8.5-10.1); Potassium 4.6 mmol/L (3.5-5.1)
[2022-09-29 05:48] LABS: Basophils # (auto) 0 10 ^3/uL (0-0.2); Eosinophils # (auto) 0 10 ^3/uL (0-0.8); Hematocrit 33.3 % (41.0-53.0); Lymphocytes # (auto) 0.5 10 ^3/uL (0.4-5.4); Lymphocytes % (auto) 4.7 % (10.0-50.0); Mean Corpuscular Hemoglobin 29.8 pg (28.0-32.0); Mean Corpuscular Hgb Conc. 33.2 g/dL (32.0-36.0); Mean Corpuscular Volume 89.7 fL (80.0-100.0); Monocytes # (auto) 0.8 10 ^3/uL (0-1.3); Monocytes % (auto) 6.7 % (0.0-12.0); Neutrophils # (auto) 10.2 10 ^3/uL (1.6-8.6); Neutrophils % (auto) 88.6 % (37.0-80.0); Red Blood Cells 3.71 10^6/uL (4.5-5.90); Red Cell Distribution Width 13.9 % (11.8-14.3); White Blood Cell 11.5 10^3/uL (4.4-10.8)
[2022-09-29] MEDS: D5W/SOD CHL 0.45%/KCL 20MEQ 1,000 ML IV SCH ×3 (06:45→20:06)
[2022-09-29 08:53] VITALS: BP 97/51
[2022-09-29] MEDS: ENOXAPARIN SOD 40 MG/0.4 ML SYRINGE SC SCH (09:37)
[2022-09-29] MEDS: PANTOPRAZOLE 40 MG/10 ML VIAL INJ IV SCH (09:37)
[2022-09-29 13:00] VITALS: BP 148/52
[2022-09-29 17:00] VITALS: BP 101/65
[2022-09-29 20:30] VITALS: BP 108/57
[2022-09-29 22:00] VITALS: BP 108/57
[2022-09-30 05:00] VITALS: BP 112/58
[2022-09-30] MEDS: ceFAZolin 1GM/50ML 50 ML IV SCH ×3 (05:10→22:11)
[2022-09-30] MEDS: metroNIDAZOLE 500MG/100ML 100 ML IV SCH ×3 (05:10→23:01)
[2022-09-30 05:12] LABS: Basophils # (auto) 0 10 ^3/uL (0-0.2); Basophils % (auto) 0.3 % (0.0-2.0); Eosinophils # (auto) 0.2 10 ^3/uL (0-0.8); Eosinophils % (auto) 2.7 % (0.0-7.0); Hematocrit 34.1 % (41.0-53.0); Hemoglobin 11.6 g/dL (13.5-17.5); Lymphocytes # (auto) 1.1 10 ^3/uL (0.4-5.4); Lymphocytes % (auto) 13.4 % (10.0-50.0); Mean Corpuscular Volume 88.2 fL (80.0-100.0); Monocytes # (auto) 0.8 10 ^3/uL (0-1.3); Monocytes % (auto) 9.6 % (0.0-12.0); Neutrophils # (auto) 5.8 10 ^3/uL (1.6-8.6); Nucleated Red Blood Cells % 0.1 %; Red Blood Cells 3.86 10^6/uL (4.5-5.90); Red Cell Distribution Width 14.2 % (11.8-14.3); White Blood Cell 7.9 10^3/uL (4.4-10.8)
[2022-09-30 05:40] LABS: BUN/Creatinine Ratio 16.9 (10.0-20.0); Calcium 8.9 mg/dL (8.5-10.1)
[2022-09-30] MEDS: D5W/SOD CHL 0.45%/KCL 20MEQ 1,000 ML IV SCH ×4 (06:45→22:17)
[2022-09-30 08:00] VITALS: BP 107/39
[2022-09-30] MEDS: PANTOPRAZOLE 40 MG/10 ML VIAL INJ IV SCH (09:35)
[2022-09-30] MEDS: ENOXAPARIN SOD 40 MG/0.4 ML SYRINGE SC SCH (09:35)
[2022-09-30 12:00] VITALS: BP 92/51
[2022-09-30 16:00] VITALS: BP 93/51
[2022-09-30 22:00] VITALS: BP 114/72
[2022-10-01 05:00] VITALS: BP 107/63
[2022-10-01] MEDS: ceFAZolin 1GM/50ML 50 ML IV SCH ×3 (05:18→21:35)
[2022-10-01] MEDS: metroNIDAZOLE 500MG/100ML 100 ML IV SCH ×3 (05:57→22:49)
[2022-10-01 06:45] LABS: Basophils # (auto) 0 10 ^3/uL (0-0.2); Basophils % (auto) 0.5 % (0.0-2.0); Eosinophils # (auto) 0.5 10 ^3/uL (0-0.8); Eosinophils % (auto) 7.8 % (0.0-7.0); Hematocrit 34.6 % (41.0-53.0); Hemoglobin 12.1 g/dL (13.5-17.5); Lymphocytes # (auto) 0.9 10 ^3/uL (0.4-5.4); Lymphocytes % (auto) 13.7 % (10.0-50.0); Mean Corpuscular Hemoglobin 30.5 pg (28.0-32.0); Mean Corpuscular Hgb Conc. 34.8 g/dL (32.0-36.0); Mean Corpuscular Volume 87.6 fL (80.0-100.0); Monocytes # (auto) 0.8 10 ^3/uL (0-1.3); Neutrophils # (auto) 4.5 10 ^3/uL (1.6-8.6); Nucleated Red Blood Cells % 0.1 %; Red Blood Cells 3.95 10^6/uL (4.5-5.90); Red Cell Distribution Width 13.9 % (11.8-14.3); White Blood Cell 6.7 10^3/uL (4.4-10.8)
[2022-10-01 07:44] LABS: Calcium 8.9 mg/dL (8.5-10.1); Potassium 3.9 mmol/L (3.5-5.1)
[2022-10-01 08:56] VITALS: BP 100/62
[2022-10-01] MEDS: PANTOPRAZOLE 40 MG/10 ML VIAL INJ IV SCH (09:21)
[2022-10-01] MEDS: ENOXAPARIN SOD 40 MG/0.4 ML SYRINGE SC SCH (09:22)
[2022-10-01 12:58] VITALS: BP 116/76
[2022-10-01] MEDS: D5W/SOD CHL 0.45%/KCL 20MEQ 1,000 ML IV SCH (13:32)
[2022-10-01 17:06] VITALS: BP 112/76
[2022-10-01 22:00] VITALS: BP 102/56
[2022-10-02] MEDS: D5W/SOD CHL 0.45%/KCL 20MEQ 1,000 ML IV SCH (02:45)
[2022-10-02 05:00] VITALS: BP 93/52
[2022-10-02] MEDS: ceFAZolin 1GM/50ML 50 ML IV SCH (05:20)
[2022-10-02] MEDS: metroNIDAZOLE 500MG/100ML 100 ML IV SCH (06:13)
[2022-10-02 08:00] VITALS: BP 105/64
[2022-10-02] MEDS: ENOXAPARIN SOD 40 MG/0.4 ML SYRINGE SC SCH (09:08)
[2022-10-02] MEDS: PANTOPRAZOLE 40 MG/10 ML VIAL INJ IV SCH (09:08)
[2022-10-02] MEDS ORDERED: HYDR-4902 PO (09:31)
[2022-10-02] MEDS ORDERED: LEVO500T31 PO (09:31)
[2022-10-02] MEDS ORDERED: METR500T PO (09:31)
[2022-10-02 10:10] VITALS: BP 105/64
== END 2022-10-02 11:30 | disposition home or self-care (01) | DRG 336 ==
LOC: SUR 08:35 → TELE 14:36 → TELE-EAST 15:54 → EAST 09-29 19:01
PROVIDERS: ADMIT Internal Medicine; ATTEND Internal Medicine
PROC: 0DNW0ZZ Release Peritoneum, Open Approach (ICD-10-PCS; 2022-09-28)
PROC: 0WQF0ZZ Repair Abdominal Wall, Open Approach (ICD-10-PCS; principal; 2022-09-28 11:14)
DX: K43.2 Incisional hernia without obstruction or gangrene (principal); R71.0 Precipitous drop in hematocrit; K66.0 Peritoneal adhesions (postprocedural) (postinfection); N40.0 Benign prostatic hyperplasia without lower urinary tract symptoms; K42.9 Umbilical hernia without obstruction or gangrene; E66.9 Obesity, unspecified; Z68.36 Body mass index [BMI] 36.0-36.9, adult
CPT/HCPCS: 36415; 80048; 80053; 81001; 85025; 85610; 85730; 86850; 86900; 86901; C1781; C9113; G0378; J0330; J0690; J1100; J1885; J2001; J2250; J2405; J2704; J3490

== ENCOUNTER → 2022-12-19 | Outpatient (CLI) | payer MEDICARE, MEDICAID ==
[~2022-12-19] MED LIST changes: -ALBU108A5 IN; +HYDR-4902 PO; +LEVO500T31 PO; +METR500T PO; +TAMS0.4C36 PO
== END | disposition home or self-care (01) ==
LOC: LAB 10:04
DX: C61 Malignant neoplasm of prostate (principal)
CPT/HCPCS: 36415; 84153; 84403

== ENCOUNTER → 2023-05-16 | Outpatient (CLI) | payer MEDICARE, MEDICAID ==
[2023-05-16 08:11] LABS: Urine WBC None Seen /hpf (0 - 3)
[2023-05-16 08:18] LABS: Basophils # (auto) 0.1 10 ^3/uL (0-0.2); Basophils % (auto) 0.9 % (0.0-2.0); Eosinophils # (auto) 0.7 10 ^3/uL (0-0.8); Eosinophils % (auto) 10.6 % (0.0-7.0); Hematocrit 40.8 % (41.0-53.0); Hemoglobin 13.4 g/dL (13.5-17.5); Lymphocytes # (auto) 1.1 10 ^3/uL (0.4-5.4); Lymphocytes % (auto) 15.6 % (10.0-50.0); Mean Corpuscular Hemoglobin 29.4 pg (28.0-32.0); Mean Corpuscular Hgb Conc. 32.9 g/dL (32.0-36.0); Mean Corpuscular Volume 89.2 fL (80.0-100.0); Monocytes # (auto) 0.8 10 ^3/uL (0-1.3); Monocytes % (auto) 11.2 % (0.0-12.0); Neutrophils # (auto) 4.3 10 ^3/uL (1.6-8.6); Neutrophils % (auto) 61.7 % (37.0-80.0); Red Blood Cells 4.58 10^6/uL (4.5-5.90); Red Cell Distribution Width 14.2 % (11.8-14.3); White Blood Cell 6.9 10^3/uL (4.4-10.8)
[2023-05-16 08:22] LABS: Urine Bacteria NONE SEEN /hpf (None Seen); Urine Blood 1+ /uL (Negative); Urine Clarity Clear (Clear); Urine Color Yellow (Yellow); Urine Mucus FEW (None Seen); Urine Protein, UAD Negative (Negative); Urine Specific Gravity 1.012 (1.001-1.035); Urine Urobilinogen Normal (Negative); Urine pH 6.5 (5.0-8.0)
[2023-05-16 09:45] LABS: Alanine Aminotransferase 14 U/L (7-40); Albumin 4.3 g/dL (3.2-4.8); Alkaline Phosphatase 82 U/L (46-116); Anion Gap 7 (5-15); Aspartate Aminotransferase 14 U/L (13-40); BUN/Creatinine Ratio 8.2 (10.0-20.0); Bilirubin, Total 0.7 mg/dL (0.2-1.0); Blood Urea Nitrogen 8 mg/dL (9-23); Calcium 9.3 mg/dL (8.5-10.1); Carbon Dioxide 27 mmol/L (20-30); Chloride 106 mmol/L (98-107); Cholesterol 149 mg/dL (< 200); Glucose 91 mg/dL (74-106); HDL Cholesterol 39 mg/dL (40-59); LDL Cholesterol 105 mg/dL (< 100); Potassium 4.4 mmol/L (3.5-5.1); Sodium 140 mmol/L (136-145); Total Protein 7.1 g/dL (5.7-8.2); Triglycerides 62 mg/dL (< 150)
== END | disposition home or self-care (01) ==
LOC: LAB 07:58
PROVIDERS: ATTEND Nurse Practitioner
DX: I10 Essential (primary) hypertension (principal); E03.9 Hypothyroidism, unspecified; R73.9 Hyperglycemia, unspecified; E78.5 Hyperlipidemia, unspecified; R35.1 Nocturia
CPT/HCPCS: 36415; 80053; 80061; 81001; 83036; 84153; 84443; 85025

== ENCOUNTER → 2023-07-13 | Outpatient (CLI) | payer MEDICARE, MEDICAID ==
[2023-07-13 08:00] LABS: Albumin 4.3 g/dL (3.2-4.8); Alkaline Phosphatase 78 U/L (46-116); Anion Gap 5 (5-15); Aspartate Aminotransferase 21 U/L (13-40); BUN/Creatinine Ratio 8.5 (10.0-20.0); Blood Urea Nitrogen 8 mg/dL (9-23); Calcium 9.5 mg/dL (8.5-10.1); Carbon Dioxide 28 mmol/L (20-30); Chloride 106 mmol/L (98-107); Cholesterol 122 mg/dL (< 200); Glucose 86 mg/dL (74-106); HDL Cholesterol 40 mg/dL (40-59); LDL Cholesterol 76 mg/dL (< 100); Potassium 4.7 mmol/L (3.5-5.1); Sodium 139 mmol/L (136-145); Triglycerides 53 mg/dL (< 150)
[2023-07-13 08:01] LABS: Bilirubin, Total 0.8 mg/dL (0.2-1.0); Total Protein 7.2 g/dL (5.7-8.2)
[2023-07-13 08:05] LABS: Alanine Aminotransferase < 9 U/L (7-40)
== END | disposition home or self-care (01) ==
LOC: LAB 06:53
PROVIDERS: ATTEND Nurse Practitioner
DX: E78.5 Hyperlipidemia, unspecified (principal)
CPT/HCPCS: 36415; 80053; 80061; 83036

== ENCOUNTER 2023-07-16 10:07 | Inpatient (IN) | payer MEDICARE, MEDICAID ==
[~2023-07-16] VITALS: Ht 175.3 cm; Wt 95.4 kg
[2023-07-16 10:37] VITALS: RESP 13; O2SAT 98
[2023-07-16] MEDS: SODIUM CHLORIDE 0.9% 1,000 ML IV ONE (10:59)
[2023-07-16 11:29] LABS: Basophils # (auto) 0 10 ^3/uL (0-0.2); Basophils % (auto) 0.4 % (0.0-2.0); Eosinophils # (auto) 0.6 10 ^3/uL (0-0.8); Eosinophils % (auto) 9.6 % (0.0-7.0); Hematocrit 40.3 % (41.0-53.0); Hemoglobin 13.2 g/dL (13.5-17.5); Lymphocytes # (auto) 0.7 10 ^3/uL (0.4-5.4); Lymphocytes % (auto) 12.1 % (10.0-50.0); Mean Corpuscular Hemoglobin 29.4 pg (28.0-32.0); Mean Corpuscular Hgb Conc. 32.8 g/dL (32.0-36.0); Mean Corpuscular Volume 89.7 fL (80.0-100.0); Monocytes # (auto) 0.7 10 ^3/uL (0-1.3); Neutrophils # (auto) 4.1 10 ^3/uL (1.6-8.6); Neutrophils % (auto) 66.9 % (37.0-80.0); Red Blood Cells 4.49 10^6/uL (4.5-5.90); Red Cell Distribution Width 14.3 % (11.8-14.3); White Blood Cell 6.1 10^3/uL (4.4-10.8)
[2023-07-16 11:33] LABS: Alanine Aminotransferase 12 U/L (7-40); Albumin 3.9 g/dL (3.2-4.8); Alkaline Phosphatase 68 U/L (46-116); Anion Gap 4 (5-15); Aspartate Aminotransferase 17 U/L (13-40); BUN/Creatinine Ratio 8.7 (10.0-20.0); Bilirubin, Total 0.7 mg/dL (0.2-1.0); Blood Alcohol < 3.0 mg/dL (<10); Blood Urea Nitrogen 8 mg/dL (9-23); Carbon Dioxide 28 mmol/L (20-30); Chloride 108 mmol/L (98-107); Glucose 85 mg/dL (74-106); Potassium 4.5 mmol/L (3.5-5.1); Sodium 140 mmol/L (136-145); Total Protein 6.5 g/dL (5.7-8.2)
[2023-07-16 11:34] LABS: Acetaminophen < 2.0 UG/ML (10.0-20.0)
[2023-07-16 11:37] LABS: Salicylate < 3.0 mg/dL (2.8-20.0)
[2023-07-16 11:46] LABS: Urine WBC None Seen /hpf (0 - 3)
[2023-07-16 12:04] LABS: Urine Bacteria NONE SEEN /hpf (None Seen); Urine Blood Negative /uL (Negative); Urine Clarity Clear (Clear); Urine Color Colorless (Yellow); Urine Protein, UAD Negative (Negative); Urine Specific Gravity 1.006 (1.001-1.035); Urine Urobilinogen Normal (Negative); Urine pH 7.5 (5.0-8.0)
[2023-07-16 12:05] LABS: Amphetamine Screen, Urine Pos (NEGATIVE); Barbiturate Scree,Urine Neg (NEGATIVE); Benzodiazephine Screen, Urine Neg (NEGATIVE); Cannabinoid Screen, Urine Neg (NEGATIVE); Cocaine Screen, Urine Neg (NEGATIVE); Opiate Scree,Urine Neg (NEGATIVE); Phencyclidine Screen, Urine Neg (NEGATIVE)
[2023-07-16 12:21] LABS: Magnesium 2.1 mg/dL (1.6-2.6)
[2023-07-16] MEDS ORDERED: MORPHINE SULFATE INJ 2 MG/ml SYRG IV PRN (16:30)
[2023-07-16] MEDS ORDERED: NITROGLYCERIN 0.4 MG SL TAB SL PRN (16:30)
[2023-07-16] MEDS ORDERED: DOCUSATE SOD 100 MG CAP PO PRN (16:30)
[2023-07-16] MEDS ORDERED: ONDANSETRON HCL 4 MG/2 ML VIAL IV PRN (16:30)
[2023-07-16] MEDS ORDERED: ACETAMINOPHEN 325 MG TAB PO PRN (16:30)
[2023-07-16] MEDS: SODIUM CHLORIDE 0.9% 1,000 ML IV SCH (16:46)
[2023-07-16 18:00] VITALS: BP 101/37; PULSE 74; RESP 16; O2SAT 93
== END 2023-07-16 18:09 | disposition left against medical advice (07) | DRG 312 ==
LOC: ER 10:07 → EDBD 10:07 → TELE 16:29
PROVIDERS: ADMIT Nurse Practitioner Family; ATTEND Nurse Practitioner Family
DX: R55 Syncope and collapse (principal); F15.10 Other stimulant abuse, uncomplicated; Z53.29 Procedure and treatment not carried out because of patient's decision for other reasons; T50.901A Poisoning by unspecified drugs, medicaments and biological substances, accidental (unintentional), initial encounter; Z85.46 Personal history of malignant neoplasm of prostate
CPT/HCPCS: 36415; 70450; 71045; 80053; 80307; 80320; 80329; 81001; 82962; 83735; 84484; 85025; 93005; G0378

== ENCOUNTER 2023-08-09 11:50 | Emergency (ER) | payer MEDICARE, MEDICAID ==
[~2023-08-09] VITALS: Ht 175.3 cm; Wt 84.1 kg
[2023-08-09 14:43] LABS: Base Excess -4.3 mmol/L (-2.0-2.0)
[2023-08-09] MEDS ORDERED: ALBUAER3 IN (14:44)
[2023-08-09] MEDS ORDERED: METH4PAK PO (14:44)
[2023-08-09 14:47] LABS: Basophils # (auto) 0 10 ^3/uL (0-0.2); Basophils % (auto) 0.4 % (0.0-2.0); Eosinophils # (auto) 0.3 10 ^3/uL (0-0.8); Hematocrit 41.1 % (41.0-53.0); Hemoglobin 13.5 g/dL (13.5-17.5); Lymphocytes # (auto) 0.5 10 ^3/uL (0.4-5.4); Lymphocytes % (auto) 5.3 % (10.0-50.0); Mean Corpuscular Hemoglobin 29.5 pg (28.0-32.0); Mean Corpuscular Hgb Conc. 32.8 g/dL (32.0-36.0); Mean Corpuscular Volume 89.7 fL (80.0-100.0); Monocytes # (auto) 0.8 10 ^3/uL (0-1.3); Monocytes % (auto) 9.2 % (0.0-12.0); Neutrophils # (auto) 7.1 10 ^3/uL (1.6-8.6); Neutrophils % (auto) 81.1 % (37.0-80.0); Red Blood Cells 4.58 10^6/uL (4.5-5.90); Red Cell Distribution Width 14.9 % (11.8-14.3); White Blood Cell 8.8 10^3/uL (4.4-10.8)
[2023-08-09] MEDS: ALBUTEROL SULF 2.5 MG/0.5ML(0.5%) NEB SOLN NEB ONE (14:54)
[2023-08-09] MEDS: IPRATROPIUM BROM 0.5 MG/2.5ML INH SOL NEB ONE (14:54)
[2023-08-09 15:09] LABS: Alanine Aminotransferase 13 U/L (7-40); Albumin 4.5 g/dL (3.2-4.8); Alkaline Phosphatase 69 U/L (46-116); Anion Gap 5 (5-15); Aspartate Aminotransferase 27 U/L (13-40); BUN/Creatinine Ratio 6.2 (10.0-20.0); Bilirubin, Total 0.7 mg/dL (0.2-1.0); Blood Urea Nitrogen 6 mg/dL (9-23); Calcium 9.3 mg/dL (8.5-10.1); Carbon Dioxide 29 mmol/L (20-30); Chloride 105 mmol/L (98-107); Glucose 97 mg/dL (74-106); Potassium 4.6 mmol/L (3.5-5.1); Sodium 139 mmol/L (136-145); Total Protein 7.2 g/dL (5.7-8.2)
[2023-08-09] MEDS: DexAMETHasone SOD PHOS 10MG/1ML VIAL INJ IM ONE (15:14)
[2023-08-09 16:44] VITALS: BP 152/78; PULSE 78; RESP 18; TEMP 98.8; O2SAT 97
== END 2023-08-09 16:46 | disposition home or self-care (01) ==
LOC: EDBD 11:50 → ER 11:50
DX: J45.901 Unspecified asthma with (acute) exacerbation (principal)
CPT/HCPCS: 36415; 36600; 71045; 80053; 82805; 83880; 84484; 85025; 85379; 93005; 94640; 96372; 99285; J1100; J7644

== ENCOUNTER 2025-01-15 11:45 | Outpatient (CLI) | payer MEDICARE, MEDICAID ==
[~2025-01-15 11:45] MED LIST changes: +ALBUAER3 IN; +METH4PAK PO; -TAMS0.4C36 PO; +TAMS0.4C39 PO
== END 2025-01-15 17:00 | disposition home or self-care (01) ==
LOC: LAB 11:45
PROVIDERS: ATTEND Internal Medicine Medical Oncology
DX: C61 Malignant neoplasm of prostate (principal)
CPT/HCPCS: 36415; 84153; 84403